=== PATIENT | male | born 1980 | race Caucasian/White ===

== ENCOUNTER 2017-04-19 21:49 | Emergency (ER) | payer MEDICARE | END 2017-04-19 23:17 | disposition home or self-care (01) | LOC: ER 21:49 | DX: T23.372A Burn of third degree of left wrist, initial encounter (principal); T25.222A Burn of second degree of left foot, initial encounter; E03.9 Hypothyroidism, unspecified; F17.210 Nicotine dependence, cigarettes, uncomplicated; Z23 Encounter for immunization; Z88.0 Allergy status to penicillin; Z88.8 Allergy status to other drugs, medicaments and biological substances; X12.XXXA Contact with other hot fluids, initial encounter; Y92.000 Kitchen of unspecified non-institutional (private) residence as the place of occurrence of the external cause | CPT/HCPCS: 90471 ==